=== PATIENT | female | born 2000 | race Caucasian/White ===

== ENCOUNTER 2022-01-16 10:48 | Day surgery (SDC) | payer BC ==
[2022-01-14 16:19] VITALS: BMI 32.8
[2022-01-16] MEDS ORDERED: MIDAZOLAM HCL 2 MG/2 ML SINGLE DOSE VIAL ONE ×3 (13:01→16:39)
[2022-01-16] MEDS ORDERED: PROPOFOL 20 ML ONE (13:01)
[2022-01-16] MEDS ORDERED: LIDOCAINE HCL 1%, 10 MG/ML (20ML VIAL) ONE (13:16)
[2022-01-16] MEDS ORDERED: BUPIVACAINE HCL 50 ML ONE (13:16)
[2022-01-16] MEDS ORDERED: ONDANSETRON 4 MG/2 ML VIAL ONE (14:36)
[2022-01-16] MEDS ORDERED: ceFAZolin SODIUM 1 GM VIAL ONE (14:36)
[2022-01-16] MEDS ORDERED: KETOROLAC TROMETHAMINE 30 MG/1 ML VIAL ONE (14:36)
[2022-01-16] MEDS ORDERED: DEXAMETHASONE SOD PHOSPHATE 4 MG/1 ML VIAL ONE (14:36)
[2022-01-16] MEDS ORDERED: ONDANSETRON 4 MG/2 ML VIAL IVPUSH PRN (15:02)
[2022-01-16] MEDS ORDERED: oxyCODONE HCL 5 MG TABLET PO PRN (15:02)
[2022-01-16] MEDS ORDERED: ACETAMINOPHEN 1000 MG/100 ML BAG IVPB ONE (15:03)
[2022-01-16] MEDS ORDERED: HYDROmorphone HCl 2 MG/ML VIAL ONE (15:58)
[2022-01-16] MEDS: HYDROmorphone HCL CARPU-JECT 2 MG/1 ML DISP.SYRIN IVPUSH ONE ×2 (16:00→16:15)
[2022-01-16] MEDS ORDERED: ROPIVACAINE HCL/PF 100 MG/20 ML VIAL ONE (16:39)
[2022-01-16] MEDS ORDERED: HYDROmorphone HCl 2 MG/ML VIAL IVPUSH ONE (16:56)
[2022-01-16 17:34] VITALS: TEMP 97.4
[2022-01-16 18:21] VITALS: BP 137/84; PULSE 97
== END 2022-01-16 18:10 | disposition home or self-care (01) ==
LOC: FASU 10:48
PROVIDERS: ATTEND Orthopaedic Surgery
PROC: 0PSN04Z Reposition Left Carpal with Internal Fixation Device, Open Approach (ICD-10-PCS; principal; 2022-01-16 14:12)
DX: S62.002A Unspecified fracture of navicular [scaphoid] bone of left wrist, initial encounter for closed fracture (principal); X58.XXXA Exposure to other specified factors, initial encounter; Y93.9 Activity, unspecified; Y92.9 Unspecified place or not applicable
CPT/HCPCS: 73110-TC-LT-FY; 73130-TC-LT-FY; 84703; 94760